=== PATIENT | female | born 1935 | race Caucasian/White ===

== ENCOUNTER 2017-03-14 16:06 | Emergency (ER) | payer MEDICARE, BC ==
[~2017-03-14 16:06] MED LIST: AGGRENOX 25 MG1 EACH PO; ARIMIDEX1 MG PO; CELEXA10 MG PO; GLUCOPHAGE XR500 MG PO; LANOXIN DPS0.25 MG PO; LIPITOR80 MG PO; MAALOX DPS30 ML PO; MELATONIN3 M1 PO; MIRALAX17 GM PO; NEURONTIN300 MG PO; PEPTO BISMOL PO; RAZADYNE4 MG PO; SYNTHROID50 MCG PO; TYLENOL325 MG PO; ULTRAM50 MG PO; VITAMIN B12-FO1 EACH PO; VITAMIN D3400 UNI1 PO
--- NOTE | 2017-03-20 11:01 | ER ---
ADMIT: 03/14/2017 RM/LOC: ER [facility] MR#: [id number] [address] [id number] JOSÉ BARILLAS [address] [place] [address] Emergency Room Report SEX: F AGE: 82 : 1935 DATE: 03/14/2017 HISTORY OF PRESENT ILLNESS: Patient presents to the emergency room with about 3 days of vomiting, diarrhea, feeling weak. PAST MEDICAL HISTORY: She has had atrial fibrillation, depression, breast cancer, breast biopsy, hypertension, diabetes, floating kidney, left leg and knee surgeries PHYSICAL EXAMINATION: VITAL SIGNS: Her blood pressure 186/89, MAP of 111, pulse 74, respirations 22, temp is 98.9, O2 sats 99%. She said the nausea bothers her the most. GENERAL: Well-nourished, well-developed female. No abdominal pain. No tenderness. ABDOMEN: Soft. BACK: Normal inspection. SKIN: Good color and turgor. EXTREMITIES: Nontender. Oriented x4. Mood and affect are appropriate. As I am talking to her and explaining that we are not finding anything in labs or urine. She states now I am having some burning on urination. Explained that the fluids will help, Pyridium will help, but no antibiotic will be necessary at this time. CLINICAL IMPRESSION: Cystitis and enteritis. PLAN: The patient advised to follow up with the primary provider within 48 hours. WBC 6.6, hemoglobin 12.5, glucose 112. UA is normal. Prescription for Zofran and Pyridium. Follow up. Continue home medications. IV fluids given. Patient already got up to go to the bathroom and has no problem. EMILI Telles / Devon Griffin MD / kary JOB #: [id number] CC: Devon Griffin MD, Attending Physician Robi Palomares MD, Family Physician
== END 2017-03-14 17:00 | disposition home or self-care (01) ==
LOC: ER 16:06
DX: K52.9 Noninfective gastroenteritis and colitis, unspecified (principal); N30.90 Cystitis, unspecified without hematuria; F32.9 Major depressive disorder, single episode, unspecified; I10 Essential (primary) hypertension; I48.91 Unspecified atrial fibrillation; E11.9 Type 2 diabetes mellitus without complications; Z88.5 Allergy status to narcotic agent; Z98.890 Other specified postprocedural states; Z85.3 Personal history of malignant neoplasm of breast